=== PATIENT | male | born 1950 | race Caucasian/White ===

== ENCOUNTER 2016-09-30 07:20 | Day surgery (SDC) | payer MEDICARE, MEDICAID ==
[~2016-09-30] VITALS: Ht 165.1 cm; Wt 105.0 kg
[~2016-09-30 07:20] MED LIST: LENA20CA PO; SEVEC800 PO
[2016-09-30] MEDS ORDERED: SODIUM CHLORIDE 0.9% 1,000 ML IV ONE ×2 (07:30→07:55)
[2016-09-30] MEDS ORDERED: FentaNYL CITRATE-PF 100 MCG/2 ML VIAL IVP ONE (07:30)
[2016-09-30] MEDS ORDERED: MIDAZOLAM HCL 2 MG/2 ML VIAL IVP ONE (07:30)
[2016-09-30] MEDS ORDERED: ASPIRIN 325 MG TABLET PO ONE (07:30)
[2016-09-30] MEDS ORDERED: DiphenhydrAMINE HCL 50 MG/ML VIAL IVP ONE (07:30)
[2016-09-30] MEDS ORDERED: ACETAMINOPHEN 325 MG TABLET PO PRN (07:30)
[2016-09-30] MEDS ORDERED: ATORVASTATIN CALCIUM 40 MG TABLET PO ONE (07:30)
[2016-09-30 08:10] LABS: BASOPHILS % (AUTO) 0.2 % (0.0-2.0); EOSINOPHILS % (AUTO) 0 % (1.0-6.0); HEMATOCRIT 33.5 % (41-53); HEMOGLOBIN 11.3 g/dL (13.5-17.5); LYMPHOCYTES # (AUTO) 0.7 K/uL (1.0-4.8); LYMPHOCYTES % (AUTO) 10.1 % (22.0-44.0); MEAN CORPUSCULAR HEMOGLOBIN 35.5 pg (26.0-34.0); MEAN CORPUSCULAR HGB CONC 33.7 G/dL (31.0-37.0); MEAN CORPUSCULAR VOLUME 105 fL (80-100); MONOCYTES # (AUTO) 0.1 K/uL (0.1-1.0); MONOCYTES % (AUTO) 1.8 % (2.0-9.0); NEUTROPHILS # (AUTO) 6.2 K/uL (1.8-7.7); NEUTROPHILS % (AUTO) 87.9 % (40.0-70.0); PLATELET COUNT (AUTO) 157 K/uL (150-450); RED BLOOD CELL COUNT(AUTO) 3.18 MIL/uL (4.50-5.90); RED CELL DISTRIBUTION WIDTH 14.9 % (11.5-14.5); WHITE BLOOD COUNT (AUTO) 7.1 K/uL (4.5-11.0)
[2016-09-30 08:18] LABS: CALCIUM, TOTAL 9.4 mg/dL (8.8-10.5); CREATININE 4.27 mg/dL (0.60-1.30); POTASSIUM 4.3 mmol/L (3.5-5.1)
[2016-09-30 08:27] LABS: PROTHROMBIN TIME 10.4 SEC (9.4-11.6)
[2016-09-30 08:31] LABS: RBC MORPHOLOGY COMMENT ABNORMAL RBC MORPH
[2016-09-30 08:32] LABS: ALBUMIN 3.3 g/dL (3.4-5.0); BILIRUBIN,TOTAL 0.4 mg/dL (0.1-1.0); THYROID STIMULATING HORMONE 1.26 uIU/mL (0.36-3.74); TOTAL PROTEIN, SERUM 7.5 g/dL (6.4-8.2)
[2016-09-30 10:09] LABS: APPEARANCE,URINE CLEAR (CLEAR); GLUCOSE, URINE (UA) NEGATIVE (NEGATIVE); KETONES,URINE NEGATIVE (NEGATIVE); LEUKOCYTE ESTERASE ,URINE NEGATIVE (NEGATIVE); OCCULT BLOOD,URINE NEGATIVE (NEGATIVE); PROTEIN,URINE SEE CONFIRM (NEGATIVE)
[2016-09-30 10:17] LABS: ADD UA MICROSCOPIC YES
[2016-09-30 10:31] LABS: RBC,URINE None Seen /HPF (0-2); SQUAMOUS EPITHELIAL CELL,UR Few /LPF (None Seen); SULFOSALICYLIC ACID,URINE 1+ (Negative); WBC,URINE 0-2 /HPF (0-5)
== END 2016-09-30 11:10 | disposition left against medical advice (07) ==
LOC: CATHLAB 07:20
PROVIDERS: ATTEND Internal Medicine Interventional Cardiology
DX: R94.31 Abnormal electrocardiogram [ECG] [EKG] (principal); I12.0 Hypertensive chronic kidney disease with stage 5 chronic kidney disease or end stage renal disease; N18.6 End stage renal disease; M54.9 Dorsalgia, unspecified; Z99.2 Dependence on renal dialysis; Z53.21 Procedure and treatment not carried out due to patient leaving prior to being seen by health care provider
CPT/HCPCS: 36415; 80053; 81001; 81002; 83880; 84443; 85025; 85610; 85730; 93005; J7030

== ENCOUNTER 2016-10-06 07:12 | Day surgery (SDC) | payer MEDICARE, MEDICAID ==
[~2016-10-06] VITALS: Ht 165.1 cm; Wt 104.5 kg
[~2016-10-06 07:12] MED LIST changes: +ACETAMINOPHEN 325 MG TABLET PO PRN; +ASPIRIN 325 MG TABLET PO PRN; +ATORVASTATIN CALCIUM 40 MG TABLET PO PRN; +DiphenhydrAMINE HCL 50 MG/ML VIAL IVP PRN; +FentaNYL CITRATE-PF 100 MCG/2 ML VIAL IV ONE; +MIDAZOLAM HCL 2 MG/2 ML VIAL IVP ONE
[2016-10-06] MEDS ORDERED: SODIUM CHLORIDE 0.9% 1,000 ML IV ONE ×2 (07:13→07:30)
[2016-10-06 07:58] LABS: CALCIUM, TOTAL 8.9 mg/dL (8.8-10.5); CREATININE 6.57 mg/dL (0.60-1.30); POTASSIUM 4.5 mmol/L (3.5-5.1)
[2016-10-06] MEDS ORDERED: SODIUM BICARBONATE 50 MEQ/50 ML VIAL ONE (10:08)
[2016-10-06] MEDS ORDERED: IOHEXOL 300 MG/ML 150 ML VIAL ONE (10:08)
[2016-10-06] MEDS ORDERED: LIDOCAINE HCL/PF 1% 30 ML VIAL ONE (10:08)
[2016-10-06] MEDS ORDERED: HEPARIN SODIUM 1000 UNITS/NS 1,000 ML ONE (10:08)
[2016-10-06 10:40] VITALS: BP 188/82
[2016-10-06] MEDS ORDERED: NITROGLYCERIN 50 MG/D5% WATER 250 ML ONE (10:40)
[2016-10-06] MEDS ORDERED: VERAPAMIL HCL 2.5 MG/ML 2 ML VIAL ONE (10:40)
[2016-10-06] MEDS ORDERED: MIDAZOLAM HCL 2 MG/2 ML VIAL ONE (10:54)
[2016-10-06] MEDS ORDERED: FentaNYL CITRATE-PF 100 MCG/2 ML VIAL ONE (10:54)
[2016-10-06] MEDS ORDERED: HEPARIN SODIUM 1000 UNITS/NS 1,000 ML IARTER ONE (11:06)
[2016-10-06] MEDS ORDERED: FentaNYL CITRATE-PF 100 MCG/2 ML VIAL IVP ONE (11:15)
[2016-10-06] MEDS ORDERED: MIDAZOLAM HCL 2 MG/2 ML VIAL IVP ONE (11:15)
[2016-10-06] MEDS ORDERED: IOHEXOL 300 MG/ML 150 ML VIAL IARTER ONE (11:15)
[2016-10-06] MEDS ORDERED: LIDOCAINE 1% 30 ML/SOD BICARB 8.4% 4 ML SQ ONE (11:15)
[2016-10-06] MEDS ORDERED: NITROGLYCERIN/D5W 50 MG/250 ML IV BOTTLE IARTER ONE ×2 (11:30→12:00)
[2016-10-06] MEDS ORDERED: VERAPAMIL HCL 2.5 MG/ML 2 ML VIAL IARTER ONE (11:30)
[2016-10-06 11:37] VITALS: BP 173/71
[2016-10-06] MEDS ORDERED: HEPARIN SODIUM,PORCINE 5,000 UNITS/ML VIAL IVP ONE (12:00)
== END 2016-10-06 15:45 | disposition home or self-care (01) ==
LOC: CATHLAB 07:12
PROVIDERS: ATTEND Internal Medicine Interventional Cardiology
DX: R07.9 Chest pain, unspecified (principal); I12.0 Hypertensive chronic kidney disease with stage 5 chronic kidney disease or end stage renal disease; N18.6 End stage renal disease; D64.9 Anemia, unspecified; C41.9 Malignant neoplasm of bone and articular cartilage, unspecified; Z99.2 Dependence on renal dialysis; Z72.89 Other problems related to lifestyle; Z87.01 Personal history of pneumonia (recurrent); Z98.890 Other specified postprocedural states; Z85.79 Personal history of other malignant neoplasms of lymphoid, hematopoietic and related tissues
CPT/HCPCS: C1887 ×14; J1200; J1644; J2250; J3010; J3490; J7030; Q9967